=== PATIENT | female | born 1945 | race Caucasian/White ===

== ENCOUNTER 2017-06-04 12:22 | Inpatient (IN) | payer OTHER ==
[2017-06-04] MEDS ORDERED: NS 1,000 ML IV ONE ×2 (12:27→16:07)
--- NOTE | 2017-06-04 12:40 | EDPHY ---
HPI/HX/ROS/PE/MDM Narrative: CHIEF COMPLAINT: Stomach pain, dehydration HPI: This patient is a 72 y/o female arriving with her primary care physician and her family for evaluation of fatigue, stomach pain, and possible dehydration. She has had various GI complaints over the past several days. Initially, she had constipation but this was relieved. She then developed abdominal pain and tenderness with vomiting. Her primary care provider noted that she had a low SpO2 in the 80s as well as an elevated heart rate, so he provided at home oxygen. The patient continued to vomit so her physician attempted IV access for rehydration, but the patient has difficult venous access due to history of breast and lung cancer. She presents for IV rehydration as well as laboratory studies. The patient currently feels very fatigued but denies any pain. She states these are the "same symptoms I've had before: my salt was low". She denies any new swelling in her legs. No history of abdominal surgery. REVIEW OF SYSTEMS: Aside from elements discussed in the HPI, a comprehensive 10-point review of systems was reviewed and is negative. PMH: History of breast cancer and lung cancer, in remission. S/p left lung pneumonectomy. Hypertension, Hyperlipidemia, Hypothyroid, Hyponatremia, Chronic constipation. Medications: Simvastatin, Levothyroxine, Omeprazole. SOCIAL HISTORY: Family at bedside. . Retired. PHYSICAL EXAM: General:Patient is alert, in no acute distress. Mild slurred speech. ENT:Eyes are normal to inspection. ENT inspection normal. Neck: Normal inspection. Full range of motion. Respiratory: Breath sounds absent on left s/p left pneumonectomy. Clear on the right. No respiratory distress. Cardiovascular: Regular rate and rhythm. Strong peripheral pulses. Normal cap refill. Abdomen:The abdomen is nontender to palpation. There are no peritoneal signs. There are normal bowel sounds. Back: Normal to inspection. No tenderness to palpation. Skin: Normal color. No rash. Warm and dry. Extremities: Normal appearance. Full range of motion. Neuro: Oriented x3. Normal motor function. Normal sensory function. ED Course: CTAP reveals SBO. Patient will require admission to the hospital. I discussed case with Dr. Thompson, who will admit. At this point, the patient has normal vital signs, a benign abdomen and she is not vomiting, so I do not think NG tube is indicated. MDM: This patient presents with malaise and abdominal pain. We performed an extensive workup and I see no signs of bowel perforation, severe sepsis, pyelonephritis, PNA or appendicitis. - Data Points Imaging Results: Imaging Impressions Chest X-Ray 06/04/17 12:28 Impression: 1. Status post left pneumonectomy with no acute chest abnormality identified. 2. Query bowel obstruction incompletely evaluated on this chest study. Laboratory Results: Laboratory Results 06/04/17 12:45 06/04/17 12:45 06/04/17 06/04/17 06/04/17 14:43 13:40 12:45 WBC RBC Hgb Hct MCV MCH MCHC RDW Plt Count MPV Neut % (Auto) Lymph % (Auto) [place] % (Auto) Eos % (Auto) Baso % (Auto) Nucleat RBC Rel Count Absolute Neuts (auto) Absolute Lymphs (auto) Absolute Monos (auto) Absolute Eos (auto) Absolute Basos (auto) Absolute Nucleated RBC Immature Gran % Seg Neutrophils % Band Neutrophils % Lymphocytes % Monocytes % Metamyelocytes % Immature Gran # Absolute Seg Neuts Absolute Band Neuts Absolute Lymphocytes Absolute Monocytes Absolute Metamyelocyte RBC/WBC/PLT Morphology Platelet Estimate Sodium 131 mEq/L L mEq/L (135-145) Potassium 4.3 mEq/L mEq/L (3.5-5.2) Chloride 94 mEq/L L mEq/L (97-110) Carbon Dioxide 25 mEq/l mEq/l (22-31) Anion Gap 12 mEq/L mEq/L (8-16) BUN 49 mg/dL H mg/dL (7-23) Creatinine 1.0 mg/dL mg/dL (0.6-1.0) Estimated GFR 54 Glucose 145 mg/dL H mg/dL (70-100) Calcium 8.6 mg/dL mg/dL (8.5-10.4) Total Bilirubin 0.9 mg/dL mg/dL (0.1-1.4) Conjugated Bilirubin 0.3 mg/dL mg/dL (0.0-0.5) Unconjugated Bilirubin 0.6 mg/dL mg/dL (0.0-1.1) AST 30 IU/L IU/L (14-46) ALT 32 IU/L IU/L (9-52) Alkaline Phosphatase 96 IU/L IU/L (38-126) Total Protein 6.8 g/dL g/dL (6.3-8.2) Albumin 3.7 g/dL g/dL (3.5-5.0) Lipase 144 IU/L IU/L (23-300) Urine Color BEATRIZ Urine Appearance HAZY Urine pH 5.0 (5.0-7.5) Ur Specific [place] 1.019 (1.002-1.030) Urine Protein 1+ H (NEGATIVE) Urine Ketones NEGATIVE (NEGATIVE) Urine Blood 1+ H (NEGATIVE) Urine Nitrate NEGATIVE (NEGATIVE) Urine Bilirubin NEGATIVE (NEGATIVE) Urine Urobilinogen NEGATIVE EU EU (0.2-1.0) Ur Leukocyte Esterase NEGATIVE (NEGATIVE) Urine RBC 1-3 /hpf /hpf (0-3) Urine WBC 3-5 /hpf H /hpf (0-3) Ur Epithelial Cells TRACE /lpf /lpf (NONE-1+) Urine Bacteria 1+ /hpf H /hpf (NONE SEEN) Hyaline Casts 1-5 /lpf /lpf (0-1) Urine Mucus TRACE /lpf /lpf (NONE-1+) Urine Glucose NEGATIVE (NEGATIVE) Nasal Influenza A PCR NEGATIVE FOR FLU A (NEGATIVE) Nasal Influenza B PCR NEGATIVE FOR FLU B (NEGATIVE) 06/04/17 12:45 WBC 16.30 10^3/uL H 10^3/uL (3.80-9.50) RBC 4.69 10^6/uL 10^6/uL (4.18-5.33) Hgb 13.9 g/dL g/dL (12.6-16.3) Hct 40.5 % % (38.0-47.0) MCV 86.4 fL fL (81.5-99.8) MCH 29.6 pg pg (27.9-34.1) MCHC 34.3 g/dL g/dL (32.4-36.7) RDW 13.6 % % (11.5-15.2) Plt Count 240 10^3/uL 10^3/uL (150-400) MPV 9.6 fL fL (8.7-11.7) Neut % (Auto) Not Reported Lymph % (Auto) Not Reported [place] % (Auto) Not Reported Eos % (Auto) Not Reported Baso % (Auto) Not Reported Nucleat RBC Rel Count 0.0 % % (0.0-0.2) Absolute Neuts (auto) Not Reported Absolute Lymphs (auto) Not Reported Absolute Monos (auto) Not Reported Absolute Eos (auto) Not Reported Absolute Basos (auto) Not Reported Absolute Nucleated RBC 0.00 10^3/uL 10^3/uL (0-0.01) Immature Gran % Not Reported Seg Neutrophils % 57 % % Band Neutrophils % 29 % % Lymphocytes % 7 % % Monocytes % 6 % % Metamyelocytes % 1 % % Immature Gran # Not Reported Absolute Seg Neuts 9.29 10^/uL H 10^/uL (1.70-6.50) Absolute Band Neuts 4.73 10^3/uL H 10^3/uL (0.00-0.70) Absolute Lymphocytes 1.14 10^3/uL 10^3/uL (1.00-3.00) Absolute Monocytes 0.98 10^3/uL H 10^3/uL (0.30-0.80) Absolute Metamyelocyte 0.16 10^3/mL H 10^3/mL (0.00-0.00) RBC/WBC/PLT Morphology NORMAL (NORMAL) Platelet Estimate ADEQUATE (ADEQ) Sodium Potassium Chloride Carbon Dioxide Anion Gap BUN Creatinine Estimated GFR Glucose Calcium Total Bilirubin Conjugated Bilirubin Unconjugated Bilirubin AST ALT Alkaline Phosphatase Total Protein Albumin Lipase Urine Color Urine Appearance Urine pH Ur Specific [place] Urine Protein Urine Ketones Urine Blood Urine Nitrate Urine Bilirubin Urine Urobilinogen Ur Leukocyte Esterase Urine RBC Urine WBC Ur Epithelial Cells Urine Bacteria Hyaline Casts Urine Mucus Urine Glucose Nasal Influenza A PCR Nasal Influenza B PCR Medications Given: Discontinued Medications Sodium Chloride (Ns) 1,000 mls @ 0 mls/hr IV EDNOW ONE; Wide Open PRN Reason: Protocol Stop: 06/04/17 12:28 Last Admin: 06/04/17 12:47 Dose: 1,000 mls General Time Seen by Provider: 06/04/17 12:27 Initial Vital Signs: Initial Vital Signs Temperature (C) 37 C 06/04/17 12:30 Heart Rate 118 H 06/04/17 12:30 Respiratory Rate 20 06/04/17 12:30 Blood Pressure 83/60 L 06/04/17 12:30 O2 Sat (%) 95 06/04/17 12:30 O2 Delivery Mode Room Air Allergies/Adverse Reactions: codeine Allergy (Severe, Verified 06/04/17 16:12) Tongue swells, heart races Home Medications: Medication Instructions Recorded Acetaminophen/ASA/Caffeine 2 each PO BID PRN 06/04/17 [Excedrin Tablet (*)] Ascorbic Acid [Vitamin C 500 mg 1,000 mg PO DAILY10 06/04/17 (*)] LORazepam [Ativan (*)] 0.5 mg PO Q4 PRN 06/04/17 Latanoprost 0.005% [Xalatan 0.005% 1 drops EACHEYE HS 06/04/17 (*)] Levothyroxine [Synthroid 75 mcg 75 mcg PO DAILY06 06/04/17 (*)] Lisinopril [Zestril 20 mg (*)] 20 mg PO DAILY 06/04/17 Metoprolol Succinate Xr [Toprol Xl 50 mg PO DAILY 06/04/17 50 mg (*)] Multivitamins [Multivitamin (*)] 1 each PO DAILY10 06/04/17 [place]-3 Fatty Acids [Fish Oil 1000 1,000 mg PO DAILY10 06/04/17 mg (*)] Omeprazole 40 mg PO DAILY 06/04/17 Pyridoxine HCl [Vitamin B-6 100 mg 100 mg PO DAILY10 06/04/17 (*)] Simvastatin 20 mg PO HS 06/04/17 Sodium Chloride [[place]] 1 spray EACHNARE PRN PRN 06/04/17 Sodium Chloride [Salt Tablet] 2 gm PO DAILY 06/04/17 Departure - Departure Disposition: [facility] Inpatient Acute Condition: Fair Report Scribed for: Vega Dickens Report Scribed by: Tasneem Ferguson Date of Report: 06/04/17 Time of Report: 14:13 Physician Review and Approval Statement: Portions of this note were transcribed by an ED scribe. I personally performed the history, physical exam, and medical decision making; and confirm the accuracy of the information in the transcribed note.
[2017-06-04 12:55] LABS: PLATELET COUNT 240 10^3/uL (150-400)
[2017-06-04] MEDS ORDERED: IOPAMIDOL (ISOVUE 370) 100 ML BTL IV ONE (14:11)
[2017-06-04] MEDS ORDERED: METOCLOPRAMIDE 10 MG TAB PO PRN (15:45)
[2017-06-04] MEDS ORDERED: ACETAMINOPHEN 325 MG TAB PO PRN (15:45)
[2017-06-04] MEDS ORDERED: METOCLOPRAMIDE 10 MG/2 ML VIAL IVP PRN (15:45)
[2017-06-04] MEDS ORDERED: HYDROmorphONE/DILAUDID 2 MG TAB PO PRN (15:45)
[2017-06-04] MEDS ORDERED: HYDROmorphone HCL/NS 0.5 MG/ML SYR IVP PRN (15:45)
[2017-06-04] MEDS ORDERED: SODIUM CHLORIDE EACHNARE PRN (17:02)
[2017-06-04] MEDS ORDERED: LORazepam 0.5 MG TAB PO PRN (17:02)
[2017-06-04] MEDS ORDERED: ACETAMINOPHEN/ASA/CAFFEINE 1 EACH TAB PO PRN (17:02)
[2017-06-04] MEDS ORDERED: [UNRECOGNIZED DRUG - OTHER] EACHNARE PRN (17:02)
[2017-06-04] MEDS ORDERED: HYDROCODONE/APAP 5/325 TAB PO PRN (17:03)
[2017-06-04] MEDS ORDERED: LORazepam 2 MG/ML INJ IVP PRN (17:04)
--- NOTE | 2017-06-04 17:07 | PDGENHP ---
History and Physical - Chief Complaint Acute abdominal pain - History of Present Illness 72-year-old female presenting with acute abdominal pain characterized as a cramping sensation with associated fatigue, nausea, 1 episode of vomiting provoked by oral intake of Ensure, precipitated by several days of constipation. Patient reports that she had previously been her usual state of health when she traveled with her to visit family members in [facility]. Upon arriving in [facility] several days ago, the patient experienced an onset of constipation which was alleviated by Colace and enema as prescribed by the family [facility] physician. Despite moving her bowels, the patient continued to experience the abdominal discomfort, and she subsequently experienced very poor appetite. Her p.o. Intake of solids and liquids on the day prior to this presentation was very limited. Her oral intake on the day of presentation was limited only to water. She has never experienced similar symptoms. She felt dehydrated and fatigued. History Information - Allergies/Home Medication List Allergies/Adverse Reactions: codeine Allergy (Severe, Verified 06/04/17 16:12) Tongue swells, heart races Home Medications: Acetaminophen/ASA/Caffeine [Excedrin Tablet (*)] 2 each PO BID PRN 06/04/17 [ Last Taken Unknown] Ascorbic Acid [Vitamin C 500 mg (*)] 1,000 mg PO DAILY10 06/04/17 [Last Taken ] LORazepam [Ativan (*)] 0.5 mg PO Q4 PRN 06/04/17 [Last Taken 06/04/17 09:00] Latanoprost 0.005% [Xalatan 0.005% (*)] 1 drops EACHEYE HS 06/04/17 [Last Taken Unknown] Levothyroxine [Synthroid 75 mcg (*)] 75 mcg PO DAILY06 06/04/17 [Last Taken 03/23] Lisinopril [Zestril 20 mg (*)] 20 mg PO DAILY 06/04/17 [Last Taken 06/03/17] Metoprolol Succinate Xr [Toprol Xl 50 mg (*)] 50 mg PO DAILY 06/04/17 [Last Taken 06/03/17] Multivitamins [Multivitamin (*)] 1 each PO DAILY10 06/04/17 [Last Taken 06/01/17 ] [place]-3 Fatty Acids [Fish Oil 1000 mg (*)] 1,000 mg PO DAILY10 06/04/17 [Last Taken 06/01/17] Omeprazole 40 mg PO DAILY 06/04/17 [Last Taken 06/03/17] Pyridoxine HCl [Vitamin B-6 100 mg (*)] 100 mg PO DAILY10 06/04/17 [Last Taken 06/01/17] Simvastatin 20 mg PO HS 06/04/17 [Last Taken 06/03/17] Sodium Chloride [[place]] 1 spray EACHNARE PRN PRN 06/04/17 [Last Taken Unknown] Sodium Chloride [Salt Tablet] 2 gm PO DAILY 06/04/17 [Last Taken 06/01/17] I have personally reviewed and updated: family history, medical history, social history, surgical history - Past Medical History hypertension, hyperlipidemia Additional medical history: Breast cancer 36 years ago receive chemotherapy. Lung cancer 2 years ago received chemotherapy. Hypothyroidism. Hyponatremia in the setting of chemotherapy with serum sodium levels down to 115, stabilized around 125 for several months, and then most recently was reported at 1:35 a.m. , on salt tabs. Hiatal hernia - Surgical History Additional surgical history: Left lobectomy - Family History Additional family history: No family history of venous thromboembolism, no family history of colon cancer or GI cancers - Social History Smoking Status: Former smoker Alcohol Use: None Drug Use: None Additional social history: Normally active in her ADLs comma does not exercise regularly Review of Systems Review of Systems: ROS: 10pt was reviewed & negative except for what was stated in HPI & below Constitutional: Reports: malaise, weakness Gastrointestinal: Reports: vomitting, abdominal pain, constipation, nausea Physical Exam Physical Exam: Temp Pulse Resp BP Pulse Ox 37 C 67 18 127/70 H 95 06/04/17 12:30 06/04/17 16:09 06/04/17 16:09 06/04/17 16:09 06/04/17 16:09 Constitutional: no apparent distress, appears nourished, not in pain, uncomfortable Eyes: PERRL, anicteric sclera, EOMI Ears, Nose, Mouth, Throat: hearing normal, other (Tacky mucous membranes) Cardiovascular: tachycardia, No systolic murmur, No irregularly irregular, No edema Respiratory: no respiratory distress, no rales or rhonchi, clear to auscultation Gastrointestinal: soft, non-tender abdomen, no palpable masses, distension (Mild ), No normoactive bowel sounds (Hypoactive bowel sounds), No guarding Genitourinary: no bladder fullness, no bladder tenderness Neurologic: AAOx3, sensation intact bilaterally, No weakness Psychiatric: interacting appropriately, not anxious, not encephalopathic, thought process linear Lab Data & Imaging Review 06/04/17 12:45 06/04/17 12:45 WBC 16.30 10^3/uL (3.80-9.50) H 06/04/17 12:45 RBC 4.69 10^6/uL (4.18-5.33) 06/04/17 12:45 Hgb 13.9 g/dL (12.6-16.3) 06/04/17 12:45 Hct 40.5 % (38.0-47.0) 06/04/17 12:45 MCV 86.4 fL (81.5-99.8) 06/04/17 12:45 MCH 29.6 pg (27.9-34.1) 06/04/17 12:45 MCHC 34.3 g/dL (32.4-36.7) 06/04/17 12:45 RDW 13.6 % (11.5-15.2) 06/04/17 12:45 Plt Count 240 10^3/uL (150-400) 06/04/17 12:45 MPV 9.6 fL (8.7-11.7) 06/04/17 12:45 Neut % (Auto) Not Reported 06/04/17 12:45 Lymph % (Auto) Not Reported 06/04/17 12:45 [place] % (Auto) Not Reported 06/04/17 12:45 Eos % (Auto) Not Reported 06/04/17 12:45 Baso % (Auto) Not Reported 06/04/17 12:45 Nucleat RBC Rel Count 0.0 % (0.0-0.2) 06/04/17 12:45 Absolute Neuts (auto) Not Reported 06/04/17 12:45 Absolute Lymphs (auto) Not Reported 06/04/17 12:45 Absolute Monos (auto) Not Reported 06/04/17 12:45 Absolute Eos (auto) Not Reported 06/04/17 12:45 Absolute Basos (auto) Not Reported 06/04/17 12:45 Absolute Nucleated RBC 0.00 10^3/uL (0-0.01) 06/04/17 12:45 Immature Gran % Not Reported 06/04/17 12:45 Seg Neutrophils % 57 % 06/04/17 12:45 Band Neutrophils % 29 % 06/04/17 12:45 Lymphocytes % 7 % 06/04/17 12:45 Monocytes % 6 % 06/04/17 12:45 Metamyelocytes % 1 % 06/04/17 12:45 Immature Gran # Not Reported 06/04/17 12:45 Absolute Seg Neuts 9.29 10^/uL (1.70-6.50) H 06/04/17 12:45 Absolute Band Neuts 4.73 10^3/uL (0.00-0.70) H 06/04/17 12:45 Absolute Lymphocytes 1.14 10^3/uL (1.00-3.00) 06/04/17 12:45 Absolute Monocytes 0.98 10^3/uL (0.30-0.80) H 06/04/17 12:45 Absolute Metamyelocyte 0.16 10^3/mL (0.00-0.00) H 06/04/17 12:45 RBC/WBC/PLT Morphology NORMAL (NORMAL) 06/04/17 12:45 Platelet Estimate ADEQUATE (ADEQ) 06/04/17 12:45 Sodium 131 mEq/L (135-145) L 06/04/17 12:45 Potassium 4.3 mEq/L (3.5-5.2) 06/04/17 12:45 Chloride 94 mEq/L (97-110) L 06/04/17 12:45 Carbon Dioxide 25 mEq/l (22-31) 06/04/17 12:45 Anion Gap 12 mEq/L (8-16) 06/04/17 12:45 BUN 49 mg/dL (7-23) H 06/04/17 12:45 Creatinine 1.0 mg/dL (0.6-1.0) 06/04/17 12:45 Estimated GFR 54 06/04/17 12:45 Glucose 145 mg/dL (70-100) H 06/04/17 12:45 Calcium 8.6 mg/dL (8.5-10.4) 06/04/17 12:45 Total Bilirubin 0.9 mg/dL (0.1-1.4) 06/04/17 12:45 Conjugated Bilirubin 0.3 mg/dL (0.0-0.5) 06/04/17 12:45 Unconjugated Bilirubin 0.6 mg/dL (0.0-1.1) 06/04/17 12:45 AST 30 IU/L (14-46) 06/04/17 12:45 ALT 32 IU/L (9-52) 06/04/17 12:45 Alkaline Phosphatase 96 IU/L (38-126) 06/04/17 12:45 Total Protein 6.8 g/dL (6.3-8.2) 06/04/17 12:45 Albumin 3.7 g/dL (3.5-5.0) 06/04/17 12:45 Lipase 144 IU/L (23-300) 06/04/17 12:45 Urine Color BEATRIZ 06/04/17 13:40 Urine Appearance HAZY 06/04/17 13:40 Urine pH 5.0 (5.0-7.5) 06/04/17 13:40 Ur Specific [place] 1.019 (1.002-1.030) 06/04/17 13:40 Urine Protein 1+ (NEGATIVE) H 06/04/17 13:40 Urine Ketones NEGATIVE (NEGATIVE) 06/04/17 13:40 Urine Blood 1+ (NEGATIVE) H 06/04/17 13:40 Urine Nitrate NEGATIVE (NEGATIVE) 06/04/17 13:40 Urine Bilirubin NEGATIVE (NEGATIVE) 06/04/17 13:40 Urine Urobilinogen NEGATIVE EU (0.2-1.0) 06/04/17 13:40 Ur Leukocyte Esterase NEGATIVE (NEGATIVE) 06/04/17 13:40 Urine RBC 1-3 /hpf (0-3) 06/04/17 13:40 Urine WBC 3-5 /hpf (0-3) H 06/04/17 13:40 Ur Epithelial Cells TRACE /lpf (NONE-1+) 06/04/17 13:40 Urine Bacteria 1+ /hpf (NONE SEEN) H 06/04/17 13:40 Hyaline Casts 1-5 /lpf (0-1) 06/04/17 13:40 Urine Mucus TRACE /lpf (NONE-1+) 06/04/17 13:40 Urine Glucose NEGATIVE (NEGATIVE) 06/04/17 13:40 Nasal Influenza A PCR NEGATIVE FOR FLU A (NEGATIVE) 06/04/17 14:43 Nasal Influenza B PCR NEGATIVE FOR FLU B (NEGATIVE) 06/04/17 14:43 Visualized and Interpreted Chest x-ray results: Yes Chest X-Ray results: other (Left pneumonectomy) Assessment & Plan Assessment: 72-year-old female presenting with acute abdominal pain secondary to acute small bowel obstruction Plan: 1. Acute small bowel obstruction. New problem this provider, further workup indicated. Evidenced by CT demonstrating small bowel obstruction with associated abdominal symptoms and precipitated by constipation, patient does not have previous abdominal surgeries -no evidence of GI malignancy on CT scan -bowel rest -recommend supportive care with sips and chips, IV fluids, pain in antiemetic medication (promotility Reglan), then can begin stool softeners and laxatives once bowel sounds and passing flatus -she reports that she has had cold card screening for colon cancer by would recommend outpatient colonoscopy upon returning back to [place] -no indication for surgical consult at this time, will continue to monitor and symptoms worsening, placed NG tube 2. Hypotension. Acute, patient had systolic blood pressure in the 80s on presentation, most likely translating into her fatigue symptoms, she was most likely hypovolemic in the setting of above -status post IV fluids in the emergency department, with good response, continue monitor blood pressure levels closely and continue on supplemental normal saline 3. Acute hyponatremia. Patient has a history of previous hyponatremia in the setting of chemotherapy and likely hypovolemia, has been maintained on salt tabs and has a had a normalized sodium level 135 prior to presentation -currently 131, most likely secondary to hypovolemia, will give normal saline and repeat serum sodium level tomorrow a.m. Diet. Sips and chips Prophylaxis. Moderate risk patient, SCDs, hold pharm given as she might require surgery if worsens Code. Full Disposition. Anticipated discharge uncertain this time, anticipated length stay is greater than 48 hr for reasonable medical necessity including acute small bowel obstruction with high risk comorbid acute hypotension and hyponatremia. Discussed this patient with Dr. Vega Dickens, he and I both agree the patient warrants inpatient hospitalization for the conditions outlined above.
[2017-06-04] MEDS: NS 1,000 ML IV SCH (17:18)
--- NOTE | 2017-06-04 17:24 | PDMN ---
Medical Necessity Medical necessity: C/M review: est. > 2 MN LOS for eval and TX of a acute small bowel obstruction, hypotension, hyponatremia requiring Case Management consult., ongoing sips and ice chips, IV fluids, pain management, antiemetics as needed, acute inpt PT/OT, comorbid history of hypertension, hyperlipidemia, hypothyroidism, breast cancer 36 yrs. ago treated with chemotherapy, lung cancer 2 yrs. ago treated with chemotherapy and left lobectomy, hiatal hernia per H/P.
[2017-06-04] MEDS: ATORVASTATIN CALCIUM 10 MG TAB PO SCH (22:38)
[2017-06-04] MEDS: LATANOPROST 0.005% 2.5 ML OPHT DROPS EACHEYE SCH (22:44)
[2017-06-05] MEDS: NS 1,000 ML IV SCH ×3 (01:24→21:50)
[2017-06-05] MEDS: LEVOTHYROXINE 75 MCG TAB PO SCH (06:12)
[2017-06-05 07:45] LABS: PLATELET COUNT 189 10^3/uL (150-400)
[2017-06-05 07:53] LABS: INR 1.08 (0.83-1.16); PROTIME(PATIENT) 14.2 SEC (12.0-15.0)
--- NOTE | 2017-06-05 08:56 | ASMTCMCOM ---
CM Note CM Note Notes: Chart reviewed. 72 Year [place] via ED with hyponatremia and SBO. PT pending. Likely to dc when medically stable with no needs. CM to follow. Date Signed: 06/05/2017 08:55 AM Electronically Signed By:Cynthia Washington RN
[2017-06-05] MEDS: METOPROLOL SUCCINATE XR 50 MG TAB PO SCH (09:26)
[2017-06-05] MEDS: SODIUM CHLORIDE 1,000 MG TAB PO SCH (09:26)
[2017-06-05] MEDS: PANTOPRAZOLE SODIUM 40 MG TAB PO SCH (09:26)
[2017-06-05] MEDS: OMEGA-3 FATTY ACIDS 1,000 MG CAP PO SCH (11:01)
[2017-06-05] MEDS: ASCORBIC ACID 500 MG TAB PO SCH (11:01)
[2017-06-05] MEDS: PYRIDOXINE HCL 100 MG TAB PO SCH (11:01)
[2017-06-05] MEDS: MULTIVITAMINS 1 EACH TAB PO SCH (11:01)
[2017-06-05] MEDS ORDERED: BISACODYL 10 MG SUPP PR PRN (11:04)
[2017-06-05] MEDS ORDERED: MAGNESIUM HYDROXIDE 30 ML UDCUP PO PRN (11:04)
[2017-06-05] MEDS ORDERED: POLYETHYLENE GLYCOL 3350 17 GM PKT PO PRN (11:04)
[2017-06-05] MEDS ORDERED: LACTULOSE 20 GM/30 ML UDCUP PO PRN (11:04)
--- NOTE | 2017-06-05 18:22 | HOSPPROG ---
Hospitalist Progress Note Assessment/Plan: Assessment: 72-year-old female presenting with acute abdominal pain secondary to acute small bowel obstruction c/b acute hyponatremia Plan: 1. Acute small bowel obstruction. Evidenced by CT demonstrating small bowel obstruction with associated abdominal symptoms and precipitated by constipation , patient does not have previous abdominal surgeries, may have been experiencing viral gastroenteritis as precipitating cause -no evidence of GI malignancy on CT scan -bowel rest, but advanced to clear successfully, and advance to light solids when hungry -small BM today -she reports that she has had colo-card screening for colon cancer by would recommend outpatient colonoscopy upon returning back to [place] 2. Hypotension. Acute, patient had systolic blood pressure in the 80s on presentation, most likely translating into her fatigue symptoms, she was most likely hypovolemic in the setting of above -resolved 3. Acute hyponatremia. Patient has a history of previous hyponatremia in the setting of chemotherapy and likely hypovolemia, has been maintained on salt tabs and has a had a normalized sodium level 135 prior to presentation -currently 135, repeat in AM to ensure stabilization 4. Leukocytosis. Acute, likely 2/2 bowel distension, cont to be elevated, trend Diet. Clear, light solid if hungry Prophylaxis. Moderate risk patient, lovenox 40 Code. Full Disposition. ADD /3, pending tolerance of PO solids in AM. Subjective: poor appetite ongoing, natalia clears this PM, small BM Objective: Vital Signs Temp Pulse Resp BP Pulse Ox 37.3 C 86 17 137/92 H 91 L 06/05/17 16:18 06/05/17 16:18 06/05/17 16:18 06/05/17 16:18 06/05/17 16:18 Laboratory Results 06/05/17 07:36 06/05/17 07:36 06/04/17 06/05/17 06/06/17 05:59 05:59 05:59 Intake Total 2866 Balance 2866 PT 14.2 SEC (12.0-15.0) 06/05/17 07:36 INR 1.08 (0.83-1.16) 06/05/17 07:36 - Pending Discharge Pending Discharge Within 24 Hours: Yes Pending Discharge Date: 06/06/17 Pending Discharge Time: 11:00 - Physical Exam Constitutional: no apparent distress, appears nourished, not in pain, uncomfortable Cardiovascular: regular rate and rhythym, no murmur, rub, or gallop Respiratory: no respiratory distress, no rales or rhonchi, clear to auscultation Gastrointestinal: No normoactive bowel sounds (hypoactive bowel sounds), No tenderness, No guarding, No distension Skin: No abrasion, No rash Neurologic: AAOx3 Psychiatric: interacting appropriately, not anxious, not encephalopathic, thought process linear ICD10 Worksheet Patient Problems: Problems Problem Status Onset SBO (small bowel obstruction) Acute
[2017-06-05] MEDS: ENOXAPARIN 40 MG/0.4 ML SYR SC SCH (18:40)
[2017-06-05] MEDS: SENNOSIDES/DOCUSATE SODIUM TAB PO SCH (20:04)
[2017-06-05] MEDS: ATORVASTATIN CALCIUM 10 MG TAB PO SCH (20:04)
[2017-06-05] MEDS: LATANOPROST 0.005% 2.5 ML OPHT DROPS EACHEYE SCH (20:05)
[2017-06-06] MEDS: LEVOTHYROXINE 75 MCG TAB PO SCH (06:12)
[2017-06-06 09:25] VITALS: RESP 18
[2017-06-06] MEDS: PYRIDOXINE HCL 100 MG TAB PO SCH (09:37)
[2017-06-06] MEDS: ASCORBIC ACID 500 MG TAB PO SCH (09:37)
[2017-06-06] MEDS: PANTOPRAZOLE SODIUM 40 MG TAB PO SCH (09:37)
[2017-06-06] MEDS: SODIUM CHLORIDE 1,000 MG TAB PO SCH (09:37)
[2017-06-06] MEDS: OMEGA-3 FATTY ACIDS 1,000 MG CAP PO SCH (09:38)
[2017-06-06] MEDS: METOPROLOL SUCCINATE XR 50 MG TAB PO SCH (09:38)
[2017-06-06] MEDS: MULTIVITAMINS 1 EACH TAB PO SCH (09:38)
[2017-06-06] MEDS: ENOXAPARIN 40 MG/0.4 ML SYR SC SCH (09:39)
[2017-06-06] MEDS: SENNOSIDES/DOCUSATE SODIUM TAB PO SCH (09:40)
--- NOTE | 2017-06-06 14:27 | PDDCSUM ---
Discharge Summary Discharge Summary: DISCHARGE DIAGNOSES: -acute abdominal pain and distension uncertain etiology; ileus vs obstruction as possible mechanisms -history of breast and lung cancer both felt to be in remission PROCEDURES: CT scan of abdomen pelvis showing primarily gases distention of small bowel without a transition point with minimal fluid, air throughout the colon though less distension compared to the small-bowel, and a decompressed stomach, with no obvious etiology for the above HOSPITAL COURSE SUMMARY: This patient presented to our emergency room complaining of abdominal pain with 1 episode of vomiting and some bloating. She had had a bowel movement a day or 2 before onset of the symptoms but some mild constipation prior to that. There was no fever no sign of bleeding and no other significant features to this illness. She has never had an episode like this before and has never been hospitalized for any bowel related reasons, no history of abdominal surgeries. CT scan done in the ER showed gaseous distention of the small bowel with minimal fluid and without any transition point. On examination her abdomen was mildly tender without signs of peritonitis with significantly decreased bowel sounds. She was observed in the hospital with hydration and symptomatic treatment. At this point she has had bowel movement and is passing flatus, eating regular diet and drinking fluids without difficulty. Her abdomen still feels mildly distended but notably better than at the time of admission. She has no pain at this point. The etiology of this episode is uncertain. Given the lack of distention of the stomach, the lack of a transition point or fluid accumulation in the small bowel , and the decrease in bowel sounds, ileus would seem more likely than obstruction, however she has no notable cause for an ileus that we could identify. In terms of obstruction she has no history of surgery or injury to the abdomen. She has had breast and lung cancers but these are felt to be in remission and there was no identification of any sign of recurrent disease on CT scans of the chest or abdomen, blood tests or otherwise at this time. The possibility of a distal ileal or cecal lesion such as a colon tumor should be considered. Therefore it is recommended that in the reasonably near future she consider having a colonoscopy. PENDING TEST RESULTS: None MEDICATION CHANGES: None FOLLOW-UP PLAN: She will visit with her primary care physician upon return to [place]. She is given records including imaging records to take with her. Colonoscopy should be considered for further evaluation, and if he has any further episodes a small-bowel follow-through may also be very useful It is recommended that the she eat very slowly and small amounts through the day and do the same with fluids, avoid carbonated beverages Greater than 35 minutes bedside and care coordination time today -
--- NOTE | 2017-06-06 14:43 | ASDISCHSUM ---
Discharge Information Plan Status:Home with No Needs Medically Cleared to Leave:06/06/2017 Discharge Date:06/06/2017 CM D/C Disposition:Home, Routine, Self-Care ADT D/C Disposition:Home, Routine, Self-Care Projected Discharge Date:06/06/2017 Transportation at D/C:Family Discharge Delay Reason: Follow-Up Date:06/06/2017 Discharge Slot: Final Diagnosis: Placement Information Patient Contact Information Contact Name:YENNY Relationship: Address:[address] [place] Work Phone: City:[place] Alternate Phone: State/Zip Code:[place] [address] Email: Financial Information Financial Class:Medicare Primary Plan Desc:MEDICARE INPATIENT Primary Plan Number:[id number] Secondary Plan Desc:ELMER Secondary Plan Number:[id number] Assessment Information LACE LACE Length of stay for Answers: 2 days current admission Acuity / Level of Answers: Yes Care: Did the patient have an inpatient admission? Comorbidities - select Answers: Other Notes: Hx of breast and lung all that apply cancer # of Emergency department Answers: 1-2 visits in the last 6 months Score: 7 Date Signed: 06/06/2017 02:41 PM Electronically Signed By:Cynthia Washington RN [facility] CM Progress Note CM Note CM Note Notes: Chart reviewed. 72 Year [place] via ED with hyponatremia and SBO. PT pending. Likely to dc when medically stable with no needs. CM to follow. Date Signed: 06/05/2017 08:55 AM Electronically Signed By:Cynthia Washington RN Case Management Discharge Plan Note Case Management Discharge Discharge Order Complete? Answers: Yes Patient to Obtain Answers: Independently Medications Transportation Arranged Answers: Family/Friends Date Signed: 06/06/2017 02:42 PM Electronically Signed By:Cynthia Washington RN Intervention Information
--- NOTE | 2017-06-06 14:48 | ASMTCMCOM ---
CM Note CM Note Notes: Patient medically cleared for discharge to home. No needs identified at this time. CM available should needs arise. Date Signed: 06/06/2017 02:47 PM Electronically Signed By:Cynthia Washington RN
[2017-06-06 16:02] VITALS: BP 150/65; PULSE 82; TEMP 97.9; O2SAT 95
== END 2017-06-06 18:45 | disposition home or self-care (01) | DRG 392 ==
LOC: F1N 16:17
PROVIDERS: ADMIT Internal Medicine; ATTEND Internal Medicine
DX: R10.9 Unspecified abdominal pain (principal); R14.0 Abdominal distension (gaseous); E87.1 Hypo-osmolality and hyponatremia; I10 Essential (primary) hypertension; E78.5 Hyperlipidemia, unspecified; E03.9 Hypothyroidism, unspecified; K59.09 Other constipation; Z87.891 Personal history of nicotine dependence; Z85.3 Personal history of malignant neoplasm of breast; Z85.118 Personal history of other malignant neoplasm of bronchus and lung
CPT/HCPCS: 97161-GP; 97165-GO; G8978-GP-CI; G8979-GP-CI; G8980-GP-CI; G8987-GO-CI; G8988-GO-CH; G8989-GO-CH; J1650; Q9967